=== PATIENT | female | born 1970 | race Caucasian/White ===

== ENCOUNTER 2024-07-26 00:16 | Observation (INO) | payer MEDICARE, OTHER ==
--- NOTE | 2024-07-26 00:36 | ED ---
General Adult HPI - General Chief complaint: Chest Pain Stated complaint: Chest Pain Time Seen by Provider: 07/26/24 00:24 Source: patient Mode of arrival: ambulatory Limitations: no limitations - History of Present Illness Initial comments: Dictation was produced using [employer] dictation software. please excuse any grammatical, word or spelling errors. Chief Complaint: 53-year-old female chest pain History of Present Illness: Patient is a 53-year-old female presents emergency department chest pain. Patient states for the last 7 days she has been having daily chest pain. States that it is more like a intermittent pressure with some sharp episodes. Not associated with nausea. She does have diaphoresis but is not sure if she is experiencing this because of menopause. Patient has history of hypertension high cholesterol. Denies any strong family history of coronary artery disease. Denies any symptoms at the bedside. The ROS documented in this emergency department record has been reviewed and confirmed by me. Those systems with pertinent positive or negative responses have been documented in the HPI. All other systems are other negative and/or noncontributory. - Related Data Allergies Allergy/AdvReac Type Severity Reaction Status Date / Time ciprofloxacin [From Cipro] Allergy Rash/Hives Verified 07/26/24 00:22 erythromycin base Allergy Nausea & Verified 07/26/24 00:22 Vomiting levofloxacin [From Levaquin] Allergy Rash/Hives Verified 07/26/24 00:22 metoclopramide [From Reglan] Allergy Unknown Verified 07/26/24 00:22 sulfamethoxazole Allergy Rash/Hives Verified 07/26/24 00:22 [From Bactrim] trimethoprim [From Bactrim] Allergy Rash/Hives Verified 07/26/24 00:22 Review of Systems ROS Statement: Those systems with pertinent positive or pertinent negative responses have been documented in the HPI. ROS Other: All systems not noted in ROS Statement are negative. Past Medical History Past Medical History: Hypertension Additional Past Medical History / Comment(s): eye problems History of Any Multi-Drug Resistant Organisms: None Reported Past Surgical History: No Surgical Hx Reported Past Psychological History: No Psychological Hx Reported Smoking Status: Never smoker Past Alcohol Use History: Occasional Past Drug Use History: None Reported General Exam - General Exam Comments Initial Comments: PHYSICAL EXAM: General Impression: Alert and oriented x3, not in acute distress HEENT: Normocephalic atraumatic, extra-ocular movements intact, pupils equal and reactive to light bilaterally, mucous membranes moist. Cardiovascular: Heart regular rate and rhythm Chest: Able to complete full sentences, no retractions, no tachypnea Abdomen: abdomen soft, non-tender, non-distended, no organomegaly Musculoskeletal: Pulses present and equal in all extremities, no peripheral edema Motor: no focal deficits noted Neurological: CN II-XII grossly intact, no focal motor or sensory deficits noted Skin: Intact with no visualized rashes Psych: Normal affect and mood Limitations: no limitations Course Vital Signs 07/26/24 07/26/24 00:18 02:38 Temperature 98.3 F Pulse Rate 75 68 Respiratory 18 18 Rate Blood Pressure 188/100 170/101 O2 Sat by Pulse 100 99 Oximetry EKG Findings - EKG Comments: EKG Findings:: My EKG interpretation: Ventricular rate 72, sinus rhythm,. #124, QRS 98, QTc 416. No CT prolongation, no QTC prolongation, no ST or T-wave changes noted. Overall, this EKG is unremarkable Medical Decision Making - Medical Decision Making Was pt. sent in by a medical professional or institution (, PA, [employer], urgent care, hospital, or half-way...) When possible be specific @ -No Did you speak to anyone other than the patient for history (EMS, parent, family, police, friend...)? What history was obtained from this source @ -No Did you review nursing and triage notes (agree or disagree)? Why? @ -I reviewed and agree with nursing and triage notes Were old charts reviewed (outside hosp., previous admission, EMS record, old EKG, old radiological studies, urgent care reports/EKG's, half-way records)? Report findings @ -no charts were reviewed Differential Diagnosis (chest pain, altered mental status, abdominal pain women, abdominal pain men, vaginal bleeding, musculoskeletal, weakness, fever, dyspnea, syncope, headache, dizziness, GI bleed, back pain, seizure, CVA, palpatations, mental health)? @ -Differential Chest Pain: Stable Angina, Unstable Angina, STEMI, NSTEMI Aortic Dissection, Pneumothorax, Musculoskeletal, Esophageal Spasm GERD, Cholecystitis, Pancreatitis, Zoster, this is not meant to be an all-inclusive list. EKG interpreted by me (3pts min.). @ -See above X-rays interpreted by me (1pt min.). @ -Chest x-ray shows no acute processes CT interpreted by me (1pt min.). @ -None done U/S interpreted by me (1pt. min.). @ -None done What testing was considered but not performed or refused? (CT, X-rays, U/S, labs )? Why? @ -None What meds were considered but not given or refused? Why? @ -None Was smoking cessation discussed for >3mins.? @ -No Were there social determinants of health that impacted care today? How? (Homelessness, low income, unemployed, alcoholism, drug addiction, transportation, low edu. Level, literacy, decrease access to med. care, prison, rehab)? @ -No Was there de-escalation of care discussed even if they declined (Discuss DNR or withdrawal of care, Hospice)? DNR status @ -No What co-morbidities impacted this encounter? (DM, HTN, Smoking, COPD, CAD, Cancer, CVA, ARF, Chemo, Hep., AIDS, mental health diagnosis, sleep apnea, morbid obesity)? @ -Hypertension, hypercholesterolemia Was patient admitted / discharged? Hospital course, mention meds given and route, prescriptions, significant lab abnormalities, going to OR and other pertinent info. @ -53-year-old female presents emergency department for atypical chest pain typical features. Vital signs upon arrival are within acceptable limits. Patient does have some risk factors laboratory evaluation obtained. Labs are unremarkable. Troponin is negative. Chest x-ray is nonacute. Patient given aspirin. Disposition options were discussed she is agreeable with observation admission with consultation to cardiology. Did you discuss the management of the patient with other professionals (professionals i.e. , PA, [employer], lab, RT, psych nurse, social media marketing specialist, senior mobile solutions architect, teacher, correction officer penitentiary, medical case worker)? Give summary @ -Case discussed with hospitalist for admission Was critical care preformed (if so, how long)? @ -No Undiagnosed new problem with uncertain prognosis? @ -No Drug Therapy requiring intensive monitoring for toxicity (Heparin, Nitro, Insulin, Cardizem)? @ -No Were any procedures done? @ -No Diagnosis/symptom? Acute, or Chronic, or Acute on Chronic? Uncomplicated (without systemic symptoms) or Complicated (systemic symptoms)? @ -Chest pain Side effects of treatment? @ -No Exacerbation, Progression, or Severe Exacerbation? @ -No Poses a threat to life or bodily function? How? (Chest pain, [place], [place], pneumonia, PE, COPD, DKA, ARF, appy, cholecystitis, CVA, Diverticulitis, Homicidal, Suicid al, threat to staff... and all critical care pts) @ -Yes - Lab Data Result diagrams: 07/26/24 00:44 07/26/24 00:44 Lab Results 07/26/24 07/26/24 07/26/24 Range/Units 00:44 00:44 00:44 WBC 8.7 (3.8-10.6) k/uL RBC 4.84 (3.80-5.40) m/uL Hgb 14.6 (11.4-16.0) gm/dL Hct 42.0 (34.0-46.0) % MCV 86.7 (80.0-100.0) fL MCH 30.2 (25.0-35.0) pg MCHC 34.9 (31.0-37.0) g/dL RDW 12.8 (11.5-15.5) % Plt Count 245 (150-450) k/uL MPV 8.2 Neutrophils % 68 % Lymphocytes % 26 % Monocytes % 3 % Eosinophils % 2 % Basophils % 0 % Neutrophils # 5.9 (1.3-7.7) k/uL Lymphocytes # 2.3 (1.0-4.8) k/uL Monocytes # 0.3 (0-1.0) k/uL Eosinophils # 0.1 (0-0.7) k/uL Basophils # 0.0 (0-0.2) k/uL PT 10.8 (10.0-12.5) sec INR 1.0 (<1.2) APTT 23.6 (22.0-30.0) sec Sodium 141 (137-145) mmol/L Potassium 3.6 (3.5-5.1) mmol/L Chloride 104 (98-107) mmol/L Carbon Dioxide 25 (22-30) mmol/L Anion Gap 12 mmol/L BUN 13 (7-17) mg/dL Creatinine 0.87 (0.52-1.04) mg/dL Est GFR (CKD-EPI)AfAm 89 (>60 ml/min/1.73 sqM) Est GFR (CKD-EPI)NonAf 77 (>60 ml/min/1.73 sqM) Glucose 114 H (74-99) mg/dL Calcium 9.7 (8.4-10.2) mg/dL Magnesium 2.2 (1.6-2.3) mg/dL Total Bilirubin 0.5 (0.2-1.3) mg/dL AST 16 (14-36) U/L ALT 33 (4-34) U/L Alkaline Phosphatase 127 H (38-126) U/L Troponin I (0.000-0.034) ng/mL Total Protein 7.5 (6.3-8.2) g/dL Albumin 4.8 (3.5-5.0) g/dL 07/26/24 Range/Units 00:44 WBC (3.8-10.6) k/uL RBC (3.80-5.40) m/uL Hgb (11.4-16.0) gm/dL Hct (34.0-46.0) % MCV (80.0-100.0) fL MCH (25.0-35.0) pg MCHC (31.0-37.0) g/dL RDW (11.5-15.5) % Plt Count (150-450) k/uL MPV Neutrophils % % Lymphocytes % % Monocytes % % Eosinophils % % Basophils % % Neutrophils # (1.3-7.7) k/uL Lymphocytes # (1.0-4.8) k/uL Monocytes # (0-1.0) k/uL Eosinophils # (0-0.7) k/uL Basophils # (0-0.2) k/uL PT (10.0-12.5) sec INR (<1.2) APTT (22.0-30.0) sec Sodium (137-145) mmol/L Potassium (3.5-5.1) mmol/L Chloride (98-107) mmol/L Carbon Dioxide (22-30) mmol/L Anion Gap mmol/L BUN (7-17) mg/dL Creatinine (0.52-1.04) mg/dL Est GFR (CKD-EPI)AfAm (>60 ml/min/1.73 sqM) Est GFR (CKD-EPI)NonAf (>60 ml/min/1.73 sqM) Glucose (74-99) mg/dL Calcium (8.4-10.2) mg/dL Magnesium (1.6-2.3) mg/dL Total Bilirubin (0.2-1.3) mg/dL AST (14-36) U/L ALT (4-34) U/L Alkaline Phosphatase (38-126) U/L Troponin I <0.012 (0.000-0.034) ng/mL Total Protein (6.3-8.2) g/dL Albumin (3.5-5.0) g/dL Disposition Clinical Impression: Chest pain Disposition: ADMITTED IP TO THIS HOSP Condition: Fair Referrals: Yury Funez MD [Primary Care Provider] - 1-2 days Decision Time: 02:59
[2024-07-26 01:02] LABS: Basophils % (A) 0 %; Eosinophils # (A) 0.1 k/uL (0-0.7); Eosinophils % (A) 2 %; HGB 14.6 gm/dL (11.4-16.0); Lymphocytes # (A) 2.3 k/uL (1.0-4.8); Lymphocytes % (A) 26 %; MCH 30.2 pg (25.0-35.0); MCHC 34.9 g/dL (31.0-37.0); MCV 86.7 fL (80.0-100.0); Mean Platelet Volume 8.2; Monocytes # (A) 0.3 k/uL (0-1.0); Monocytes % (A) 3 %; Neutrophils # (A) 5.9 k/uL (1.3-7.7); Neutrophils % (A) 68 %; Platelet Count 245 k/uL (150-450); RBC 4.84 m/uL (3.80-5.40); RDW 12.8 % (11.5-15.5); WBC 8.7 k/uL (3.8-10.6)
[2024-07-26 01:10] LABS: Partial Thromboplastin Time 23.6 sec (22.0-30.0); Prothrombin Time 10.8 sec (10.0-12.5)
[2024-07-26 01:18] LABS: ALT 33 U/L (4-34); AST 16 U/L (14-36); African American GFR (CKD) 89 (>60 ml/min/1.73 sqM); Albumin 4.8 g/dL (3.5-5.0); Alkaline Phosphatase 127 U/L (38-126); Anion Gap 12 mmol/L; Blood Urea Nitrogen 13 mg/dL (7-17); Calcium 9.7 mg/dL (8.4-10.2); Carbon Dioxide 25 mmol/L (22-30); Chloride 104 mmol/L (98-107); Glucose 114 mg/dL (74-99); Magnesium 2.2 mg/dL (1.6-2.3); Non-African American GFR(CKD) 77 (>60 ml/min/1.73 sqM); Potassium 3.6 mmol/L (3.5-5.1); Sodium 141 mmol/L (137-145); Total Bilirubin 0.5 mg/dL (0.2-1.3); Total Protein 7.5 g/dL (6.3-8.2)
[2024-07-26] MEDS: ONDANSETRON 4 MG/2 ML VIAL IVP STA (01:23)
--- NOTE | 2024-07-26 02:47 | XR ---
EXAM: XR Chest, 2 Views CLINICAL HISTORY: ITS.REASON XR Reason: Chest Pain TECHNIQUE: Frontal and lateral views of the chest. COMPARISON: No relevant prior studies available. FINDINGS: Lungs: No consolidation or mass. Pleural space: No effusion. Heart: No cardiomegaly. Bones/joints: No acute findings. IMPRESSION: No acute cardiopulmonary process.
[2024-07-26] MEDS ORDERED: NITROGLYCERIN SL TABS 0.4 MG TAB SUBLINGUAL PRN (02:55)
[2024-07-26] MEDS: ASPIRIN 81 MG PO STA (03:50)
[2024-07-26] MEDS: hydrALAZINE HCL 20 MG/ML 1 ML VIAL IVP STA ×2 (03:57→09:49)
--- NOTE | 2024-07-26 06:13 | P.HPIM ---
History of Present Illness H&P Date: 07/26/24 Chief Complaint: chest pain 54-year-old female with hypertension Patient coming in for evaluation of chest pain she reports that she has been having off-and-on chest pain for the past 7 days not related to any physical activity she feels pressure in her chest with these episodes associated with sweating feeling dizzy but denies any shortness of breath nausea or vomiting. She denies any cardiac workup in the past denies any history of heart attacks denies any family history of premature CAD. Patient currently denies any chest pain. Denies any recent travel or hospital stay denies any history of blood clots review of systems Pertinent positives as noted in HPI. All other systems were reviewed and are negative on exam Constitutional: No acute distress, conversant, pleasant Eyes: Anicteric sclerae, moist conjunctiva, Pupils equal round reactive to light ENMT: NC/AT Oropharynx clear, no erythema, or exudates Neck: Supple, no masses, or JVD No carotid bruits No thyromegaly Lungs: Clear to auscultation Clear to percussion Normal respiratory effort, no accessory muscle use Cardiovascular: Heart regular in rate and rhythm, No murmurs, gallops, or rubs No peripheral edema Abdominal: Soft Nontender, no guarding, rebound or rigidity Abdomen moving with respiration Normoactive bowel sounds Extremities: No digital cyanosis No clubbing Pedal pulses intact and symmetrical Radial pulses intact and symmetrical No calf tenderness Psychiatric: Alert and oriented to person, place and time Neuro Muscles Strength 5/5 in all 4 extremities Sensation to light touch grossly present throughout Cranial nerves II-XII grossly intact Past Medical History Past Medical History: Hypertension Additional Past Medical History / Comment(s): eye problems History of Any Multi-Drug Resistant Organisms: None Reported Past Surgical History: No Surgical Hx Reported Past Psychological History: No Psychological Hx Reported Smoking Status: Never smoker Past Alcohol Use History: Occasional Past Drug Use History: None Reported Medications and Allergies Allergies Allergy/AdvReac Type Severity Reaction Status Date / Time ciprofloxacin [From Cipro] Allergy Rash/Hives Verified 07/26/24 00:22 erythromycin base Allergy Nausea & Verified 07/26/24 00:22 Vomiting levofloxacin [From Levaquin] Allergy Rash/Hives Verified 07/26/24 00:22 metoclopramide [From Reglan] Allergy Unknown Verified 07/26/24 00:22 sulfamethoxazole Allergy Rash/Hives Verified 07/26/24 00:22 [From Bactrim] trimethoprim [From Bactrim] Allergy Rash/Hives Verified 07/26/24 00:22 Physical Exam Vitals: Vital Signs Temp Pulse Resp BP Pulse Ox 07/26/24 04:32 72 18 170/99 96 07/26/24 03:55 69 18 179/102 97 07/26/24 02:38 68 18 170/101 99 07/26/24 00:18 98.3 F 75 18 188/100 100 Intake and Output 07/25/24 07/25/24 07/26/24 14:59 22:59 06:59 Other: Weight 76.204 kg Results CBC & Chem 7: 07/26/24 00:44 07/26/24 00:44 Labs: Abnormal Lab Results - Last 24 Hours (Table) 07/26/24 Range/Units 00:44 Glucose 114 H (74-99) mg/dL Alkaline Phosphatase 127 H (38-126) U/L Assessment and Plan Assessment: 53-year-old female with hypertension coming in for evaluation of intermittent chest pain I discussed case with ED doctor accepted the admission for atypical chest pain rule out ACS Atypical chest pain EKG no acute ST changes Troponin negative x 2 Cardiology consult Cardiac monitoring Monitor vital signs Aspirin 81 mg p.o. daily Check lipid profile check TSH Nitro as needed for chest pain Hypertensive urgency, uncontrolled Patient received hydralazine in the ED Initiate amlodipine 10 mg p.o. daily Hydrochlorothiazide 25 mg daily Blood work overall unremarkable white count 8.7 hemoglobin 14.6 Sodium 141 potassium 3.6 BUN 13 creatinine 0.8 Chest x-ray showing no acute pathology Full code DVT prophylaxis Lovenox 40 mg subcu daily
[2024-07-26] MEDS: ASPIRIN 81 MG PO SCH (08:32)
--- NOTE | 2024-07-26 10:56 | P.CRDCN ---
History of Present Illness Consult date: 07/26/24 Consult reason: chest pain History of present illness: This is a 53-year-old female patient with past medical history of asthma, preeclampsia many years ago, high blood pressure readings. She denies having any previous cardiac history and has not followed with a camera assembler. She is also not followed with a PCP for very long time. Patient is on a number of supplements and prefers holistic medications. She is agreeable to treat hypertension. We have been asked to evaluate the patient for chest pain. Patient states that she had a weird sensation in her chest and thought it was her asthma and causing pressure in her chest but she was not sure. She noted that it was happening or she noticed it most when she was at rest but when she got up and moved around it seems to be improved. It also seems to occur more often later in the day. She denies family history of coronary artery disease. She is a non-smoker. She drinks alcohol occasionally. No marijuana or illicit drug use. Patient does have a recent history of a tibial plateau fracture that is healed and she feels she is okay to walk on a treadmill. Patient is seen today in the emergency center waiting for a bed on the cardiac stepdown unit. She presented with a blood pressure of 188/100 and was given hydralazine 5 mg IV push x 1 with no significant improvement. Blood pressure now 163/91, heart rate 89, pulse ox 98% on room air. -EKG: Sinus rhythm with no acute ST-T wave changes. -Chest x-ray: No acute process -Laboratory studies: CBC, INR, CMP, magnesium normal except for glucose of 114 and alkaline phosphatase 127. Troponin negative x 3. -Home cardiac medications: None Review Of Systems: At the time of my exam: CONSTITUTIONAL: Denies fever or chills. HEENT: Denies blurred vision, vision changes, or eye pain. Denies hemoptysis CARDIOVASCULAR: Denies chest pain. Denies orthopnea. Denies PND. Denies palpitations RESPIRATORY: Denies shortness of breath. GASTROINTESTINAL: Denies abdominal pain. Denies nausea or vomiting. HEMATOLOGIC: Denies bleeding disorders. GENITOURINARY: Denies any blood in urine. SKIN: Denies puritis. Denies rash. Physical examination: Gen: This is a 53-year-old female in no acute distress VS: reviewed HEENT: Head is atraumatic, normocephalic. Pupils equal, round. Sclerae is anicteric. NECK: Supple. No JVD. LUNGS: Clear to auscultation. No wheezes or rhonchi. No intercostal retractions. HEART: Regular rate and rhythm. No murmur. ABDOMEN: Soft No tenderness. EXTREMITIES: No pedal edema. No calf tenderness. NEUROLOGICAL: Patient is awake, alert and oriented x3. Assessment: Chest pain possibly related to uncontrolled hypertension Acute coronary syndrome has been ruled out with normal troponins Uncontrolled hypertension Plan: Give patient 1 dose of hydralazine 10 mg now Start patient on losartan 25 mg daily Obtain the following: A1c, lipid panel, TSH, BNP Schedule patient for stress echocardiogram today Obtain 2-D echocardiogram and Doppler study to assess cardiac structure and function If above testing is unremarkable and blood pressures improved, patient is cleared for discharge and will follow-up in the office with Dr. Rodriguez in 1 week Thank you kindly for this consultation. Nurse practitioner note has been reviewed, I agree with documented findings and plan of care. Patient was seen and examined. Past Medical History Past Medical History: Hypertension Additional Past Medical History / Comment(s): eye problems History of Any Multi-Drug Resistant Organisms: None Reported Past Surgical History: No Surgical Hx Reported Past Psychological History: No Psychological Hx Reported Smoking Status: Never smoker Past Alcohol Use History: Occasional Past Drug Use History: None Reported Medications and Allergies Home Medications Medication Instructions Recorded Confirmed Type Albuterol Sulfate [Albuterol 2 puff INHALATION RT-Q4H PRN 07/26/24 07/26/24 History Sulfate Hfa] Bee Propolis 1 cap PO DAILY 07/26/24 07/26/24 History Black Seed Oil 1 cap PO HS 07/26/24 07/26/24 History [place] 1 tab PO HS 07/26/24 07/26/24 History Cyanocobalamin (Vitamin B-12) 1,000 mcg PO DAILY 07/26/24 07/26/24 History [Vitamin B-12] Lilly [employer] Oil 1 cap PO HS 07/26/24 07/26/24 History Pre/Probiotic 1 cap PO DAILY 07/26/24 07/26/24 History Zinc Gluconate [Zinc] 50 mg PO DAILY 07/26/24 07/26/24 History lysine HCL [l-Lysine] 1,000 mg PO DAILY 07/26/24 07/26/24 History Allergies Allergy/AdvReac Type Severity Reaction Status Date / Time ciprofloxacin [From Cipro] Allergy Rash/Hives Verified 07/26/24 07:36 levofloxacin [From Levaquin] Allergy Rash/Hives Verified 07/26/24 07:36 metoclopramide [From Reglan] Allergy Unknown Verified 07/26/24 07:36 sulfamethoxazole Allergy Rash/Hives Verified 07/26/24 07:36 [From Bactrim] trimethoprim [From Bactrim] Allergy Rash/Hives Verified 07/26/24 07:36 erythromycin base AdvReac Nausea & Verified 07/26/24 07:36 Vomiting Physical Exam Vitals: Vital Signs Temp Pulse Resp BP Pulse Ox 07/26/24 08:27 98.3 F 66 20 171/98 100 07/26/24 06:33 60 18 168/92 98 07/26/24 04:32 72 18 170/99 96 07/26/24 03:55 69 18 179/102 97 07/26/24 02:38 68 18 170/101 99 07/26/24 00:18 98.3 F 75 18 188/100 100 Intake and Output 07/25/24 07/26/24 07/26/24 22:59 06:59 14:59 Other: Weight 76.204 kg Results 07/26/24 00:44 07/26/24 00:44 Cardiac Enzymes 07/26/24 07/26/24 07/26/24 Range/Units 00:44 00:44 03:22 AST 16 (14-36) U/L Troponin I <0.012 0.016 (0.000-0.034) ng/mL 07/26/24 Range/Units 06:18 AST (14-36) U/L Troponin I <0.012 (0.000-0.034) ng/mL Coagulation 07/26/24 Range/Units 00:44 PT 10.8 (10.0-12.5) sec APTT 23.6 (22.0-30.0) sec CBC 07/26/24 Range/Units 00:44 WBC 8.7 (3.8-10.6) k/uL RBC 4.84 (3.80-5.40) m/uL Hgb 14.6 (11.4-16.0) gm/dL Hct 42.0 (34.0-46.0) % Plt Count 245 (150-450) k/uL Comprehensive Metabolic Panel 07/26/24 Range/Units 00:44 Sodium 141 (137-145) mmol/L Potassium 3.6 (3.5-5.1) mmol/L Chloride 104 (98-107) mmol/L Carbon Dioxide 25 (22-30) mmol/L BUN 13 (7-17) mg/dL Creatinine 0.87 (0.52-1.04) mg/dL Glucose 114 H (74-99) mg/dL Calcium 9.7 (8.4-10.2) mg/dL AST 16 (14-36) U/L ALT 33 (4-34) U/L Alkaline Phosphatase 127 H (38-126) U/L Total Protein 7.5 (6.3-8.2) g/dL Albumin 4.8 (3.5-5.0) g/dL Current Medications Generic Name Dose Route Start Last Admin Trade Name Freq PRN Reason Stop Dose Admin Aspirin 81 mg 07/26/24 09:00 07/26/24 08:32 Aspirin 81 Mg PO 81 mg DAILY KALYAN Administration Nitroglycerin 0.4 mg 07/26/24 02:55 Nitroglycerin Sl Tabs 0.4 Mg Tab SUBLINGUAL Q5M PRN Chest Pain Intake and Output 07/25/24 07/26/24 07/26/24 22:59 06:59 14:59 Other: Weight 76.204 kg 07/26/24 00:44 07/26/24 00:44
--- NOTE | 2024-07-26 13:17 | CA ---
Transthoracic Echo Report Name: Marti Zapata Age: 53 Gender: F : 1970 Exam Date: 07/26/2024 11:23 Exam Location: [facility] Ht (in): 66 Wt (lb): 168 Ordering Physician: Maddie Zeng Attending/Referring Phys: [id number], Karri Advertiser Dayanna Yanez, SMILEY Procedure CPT: Indications: LVF Cardiac Hx: Technical Quality: Good Contrast 1: Total Dose (mL): Contrast 2: Total Dose (mL): MEASUREMENTS (Male / Female) Normal Values 2D ECHO LV Diastolic Diameter PLAX 5.2 cm 4.2 - 5.9 / 3.9 - 5.3 cm LV Systolic Diameter PLAX 3.2 cm IVS Diastolic Thickness 0.9 cm 0.6 - 1.0 / 0.6 - 0.9 cm LVPW Diastolic Thickness 1.2 cm 0.6 - 1.0 / 0.6 - 0.9 cm LV Relative Wall Thickness 0.4 RV Internal Dim ED PLAX 3.0 cm LVOT Diameter 2.1 cm LA Systolic Diameter LX 3.1 cm 3.0 - 4.0 / 2.7 - 3.8 cm LV Diastolic Volume MOD BP 59.9 cm??? 67 - 155 / 56 - 104 cm??? LV Systolic Volume MOD BP 15.4 cm??? 22 - 58 / 19 - 49 cm??? LV Ejection Fraction MOD BP 74.2 % >= 55 % LV Cardiac Index MOD BP 2035.9 cm???/min???m??? LV Diastolic Volume MOD 4C 53.5 cm??? LV Systolic Volume MOD 4C 13.4 cm??? LV Ejection Fraction MOD 4C 75.0 % LV Cardiac Index MOD 4C 1836.8 cm???/min???m??? LV Diastolic Length 4C 7.3 cm LV Systolic Length 4C 5.6 cm LV Diastolic Volume MOD 2C 66.8 cm??? LV Systolic Volume MOD 2C 17.3 cm??? LV Ejection Fraction MOD 2C 74.1 % LV Cardiac Index MOD 2C 2265.6 cm???/min???m??? LV Diastolic Length 2C 7.4 cm LV Systolic Length 2C 6.1 cm LA Volume 24.6 cm??? 18 - 58 / 22 - 52 cm??? LA Volume Index 13.0 cm???/m??? 16 - 28 cm???/m??? M-MODE Aortic Root Diameter MM 2.9 cm AV Cusp Separation MM 1.9 cm DOPPLER MV Area PHT 3.6 cm??? Mitral E Point Velocity 118.2 cm/s Mitral A Point Velocity 108.5 cm/s Mitral E to A Ratio 1.1 MV Deceleration Time 209.7 ms TR Peak Velocity 243.1 cm/s TR Peak Gradient 23.6 mmHg Right Ventricular Systolic Press 28.6 mmHg FINDINGS Left Ventricle Left ventricular ejection fraction is estimated at 60-65 %. Left ventricular cavity size normal. Mildly increased posterior wall thickness. Normal left ventricular wall motion. Right Ventricle Normal right ventricular size. Right ventricular systolic pressure within normal limits. Right Atrium Normal right atrial size. No right atrial thrombus or mass seen. Left Atrium Normal left atrial size. No left atrial thrombus or mass present. Mitral Valve Structurally normal mitral valve. No mitral stenosis, regurgitation or prolapse. Aortic Valve Trileaflet aortic valve. No aortic valve stenosis or regurgitation. Tricuspid Valve Structurally normal tricuspid valve. Trace to mild tricuspid regurgitation. Pulmonic Valve Structurally normal pulmonic valve. No pulmonic regurgitation. Pericardium No pericardial or pleural effusion. Aorta Normal size aortic root and proximal ascending aorta. CONCLUSIONS LVEF 60% Mild concentric LVH Normal RV size and systolic function No obvious regional wall motion abnormality No significant valvular dysfunction Previewed by: Dr Anjel Rodriguez (Electronically Signed) Final Date: 26 July 2024 13:16
--- NOTE | 2024-07-26 13:19 | CA ---
Stress Echo Report Marti Zapata Age: 53 Gender: F : 1970 Exam Date: 07/26/2024 10:52 Exam Location: [facility] Ht (in): 66 Wt (lb): 168 Ordering Physician: Maddie Zeng Referring Physician: [id number] Label Remover: Dayanna Yanez RDCS Technologist Procedure CPT: Indication: Chest Pain ICD-9 Codes: Rhythm: Patient History: CHEST PRESSURE, DIFFICULTY IN BREATHING, PALPITATIONS, HTN, HYPERCHOLESTEROLEMIA Cardiac Medications: Medications in past 24 hours: Contrast: Stress Results Protocol: [place] Total dose(mL): Exercise Duration (min:sec): 6:[address] Depression (mm): Angina Score: Aiken Score: METS: 7.3 Resting HR: 90 Resting BP: 169 / 81 Peak HR: 143 Peak BP: 204 / 85 Max Predicted HR: 168 85 % Max Predicted HR Target HR: 143 Double Product: [id number] Stress Summary: BP Response: Reason for Termination: TARGET HR Cardiac Symptoms: NO SYMPTOMS ECG Analysis Resting ECG: Normal sinus rhythm, Stress ECG: no significant ST-T wave changes that are diagnostic for ischemia by ST segment analysis Arrhythmia: No significant arrhythmias or ectopic beats noticed during the stress Echo Analysis Resting Echo: Normal global and segmental systolic function at rest. No resting regional wall motion abnormality. Peak Echo Analysis: Normal augmentation of global and segmental systolic function. No stress-induced regional wall motion abnormality. MEASUREMENTS (Male/Female) Normal Values CONCLUSIONS Fair exercise tolerance for age achieving only 7.3 METS Hypertensive at baseline Nonischemic ECG and echo response to stress Overall low probability for obstructive CAD Dr Anjel Rodriguez (Electronically Signed) Final Date: 26 July 2024 13:18
--- NOTE | 2024-07-26 13:47 | P.DS ---
Providers Date of admission: 07/26/24 02:56 Expected date of discharge: 07/26/24 Attending physician: Tali Toscano MD Consults: 07/26/24 02:55 Consult Physician Urgent Consulting Provider: Henok Sutton Consult Reason/Comments: chest pain Do you want consulting provider notified?: Yes Primary care physician: Yury Funez MD Hospital Course: 54-year-old female with hypertension came in for evaluation of chest pain she reports that she has been having off-and-on chest pain for the past 7 days not related to any physical activity she feels pressure in her chest with these episodes associated with sweating feeling dizzy but denies any shortness of breath nausea or vomiting. She denies any cardiac workup in the past denies any history of heart attacks denies any family history of premature CAD. She was admitted to observation, tele was ok. EKG and serial trops negative. BP was high started on losartan and was given one time hydralazine. She underwent stress echo today which showed low probability for CAD. Echo showed LVH and normal EF. Chest pain might be due to hypertensive urgency. She is going to be discharged in a stable condition. Patient Condition at Discharge: Fair Plan - Discharge Summary New Discharge Prescriptions: New Losartan [Cozaar] 25 mg PO DAILY #90 tab Rosuvastatin [Crestor] 10 mg PO HS #90 tablet Continue Pre/Probiotic 1 cap PO DAILY [place]essel [place] Oil 1 cap PO HS Cyanocobalamin (Vitamin B-12) [Vitamin B-12] 1,000 mcg PO DAILY [place] Oil 1 cap PO HS Albuterol Sulfate [Albuterol Sulfate Hfa] 2 puff INHALATION RT-Q4H PRN PRN Reason: Shortness Of Breath Bee Propolis 1 cap PO DAILY lysine HCL [l-Lysine] 1,000 mg PO DAILY Zinc Gluconate [Zinc] 50 mg PO DAILY [place] 1 tab PO HS Discharge Medication List Albuterol Sulfate [Albuterol Sulfate Hfa] 2 puff INHALATION RT-Q4H PRN 07/26/24 [History] Bee Propolis 1 cap PO DAILY 07/26/24 [History] Black Seed Oil 1 cap PO HS 07/26/24 [History] [place] 1 tab PO HS 07/26/24 [History] Cyanocobalamin (Vitamin B-12) [Vitamin B-12] 1,000 mcg PO DAILY 07/26/24 [History] Losartan [Cozaar] 25 mg PO DAILY #90 tab 07/26/24 [Rx] [place]essel [place] Oil 1 cap PO HS 07/26/24 [History] Pre/Probiotic 1 cap PO DAILY 07/26/24 [History] Rosuvastatin [Crestor] 10 mg PO HS #90 tablet 07/26/24 [Rx] Zinc Gluconate [Zinc] 50 mg PO DAILY 07/26/24 [History] lysine HCL [l-Lysine] 1,000 mg PO DAILY 07/26/24 [History] Follow up Appointment(s)/Referral(s): Anjel Rodriguez MD [Medical Doctor] - 1 Week Yury Funez MD [Primary Care Provider] - 1-2 days Plan of Treatment: Maintain blood pressure log. Check your blood pressure at least once a day and write it on a piece of paper. Follow-up with Dr. Rodriguez in show this in order for him to take better decision regarding your medications and medical care
[2024-07-26] MEDS: LOSARTAN 25 MG TAB PO SCH (14:10)
[2024-07-26] MEDS: ASPIRIN-ACET-CAFF 250-250-65MG 1 EACH TAB PO PRN (14:22)
[2024-07-26 16:37] VITALS: BP 145/76; PULSE 87; RESP 16; TEMP 97.5
[2024-07-27] MEDS ORDERED: ASPIRIN 325 MG TAB PO SCH (09:00)
== END 2024-07-26 17:40 | disposition home or self-care (01) ==
LOC: EC 00:16 → 6NMEDSUR 02:56
PROVIDERS: ADMIT Internal Medicine; ATTEND Internal Medicine
DX: R07.89 Other chest pain (principal); I16.0 Hypertensive urgency; I10 Essential (primary) hypertension; E78.00 Pure hypercholesterolemia, unspecified; J45.909 Unspecified asthma, uncomplicated; Z88.1 Allergy status to other antibiotic agents; Z88.2 Allergy status to sulfonamides; Z88.8 Allergy status to other drugs, medicaments and biological substances; Z87.59 Personal history of other complications of pregnancy, childbirth and the puerperium
CPT/HCPCS: 96376; 96374; 99285; 36415; 93005; 93306; 93351; 83880; 80053; 84443; 83735; 84484; 85025; 85610; 85730; 83036; 71046; G0378; J0360